=== PATIENT | male | born 1950 | race African-American/Black ===

== ENCOUNTER 2017-02-17 13:34 | Outpatient (CLI) | payer MEDICARE, BC ==
[2017-02-17] MEDS ORDERED: Gadobenate Dimeglumine 529 MG/1 ML (20ML VIAL) ONE (15:30)
--- NOTE | 2017-02-18 13:20 | MRI ---
MRI PELVIS WITH AND WITHOUT IV CONTRAST: Date: 02/17/17 HISTORY: 66-year-old male with Easton score of 9. FINDINGS: The prostatic volume measures 45 mL. There is a 1.0 cm focal area of hypointensity on ADC with hyperintensity on diffusion-weighted imag es and postcontrast enhancement seen in the posterior aspect of the right mid gland within the trans ition zone, highly suspicious for cancer. No definite capsular involvement is seen. No involvement of the neurovascular bundles is identified. There are changes of benign prostatic hypertrophy in the central gland. No suspicious lymph nodes a re seen. The seminal vesicles are normal.No suspicious osseous abnormalities are noted. There are jenkins bchondral cysts in the acetabular regions bilaterally. IMPRESSION: PI-RADS 4 - High (clinically significant cancer is likely to be present) This exam was interpreted in consultation with Dr. Rajat Bryant, who concurs. POS: BRETT
== END 2017-02-17 13:35 | disposition home or self-care (01) ==
LOC: TBSIIMAG 13:34
PROVIDERS: ATTEND Urology
DX: C61 Malignant neoplasm of prostate (principal)
CPT/HCPCS: 72197; A9579

== ENCOUNTER 2017-03-11 13:39 | Outpatient (CLI) | payer MEDICARE, BC ==
[2017-03-11 16:28] LABS: ALT (SGPT) 21 U/L (8-55); AST (SGOT) 27 U/L (5-34); Alkaline Phosphatase 103 U/L (40-150); Anion Gap 15 mmol/L (10-20); BUN (Urea Nitrogen) 19 mg/dL (8.4-25.7); Bilirubin, Total 0.3 mg/dL (0.2-1.2); Calc. Creatinine Clearance 0 mL/min (70-130); Calcium 9.7 mg/dL (7.8-10.44); Carbon Dioxide 19 mmol/L (23-31); Chloride 106 mmol/L (98-107); Estimated GFR-MDRD 88; Globulin 3.7 g/dL (2.4-3.5); Protein, Total 7.8 g/dL (5.8-8.1)
== END 2017-03-11 13:40 | disposition home or self-care (01) ==
LOC: LABBT 13:39
PROVIDERS: ATTEND Internal Medicine Cardiovascular Disease
DX: R94.39 Abnormal result of other cardiovascular function study (principal)
CPT/HCPCS: 80053

== ENCOUNTER 2017-03-17 05:45 | Day surgery (SDC) | payer MEDICARE, BC ==
[2017-03-11 14:15] VITALS: BMI 29.3
[2017-03-17] MEDS ORDERED: Heparin 1000 UNIT/NS 500ML(OR) 1,000 ML ONE (06:38)
[2017-03-17 06:59] LABS: #Basophils 0.1 thou/uL (0.0-0.2); #Eosinphils 0.3 thou/uL (0.0-0.7); #Lymphocytes 2.1 thou/uL (1.20-3.40); #Neutrophils 6.7 thou/uL (1.40-6.50); %Basophils 0.6 % (0.0-1.0); %Eosinophils 3.2 % (0.0-10.0); %Lymphocytes 20.7 % (21.0-51.0); %Monocytes 9.3 % (0.0-10.0); Hematocrit 40.6 % (42.0-52.0); Mean Platelet Volume 6.6 fL (7.4-10.4); Red Blood Cell (RBC) Count 4.65 mill/uL (4.70-6.10); White Blood Cell (WBC) Count 10.2 thou/uL (4.8-10.8)
[2017-03-17 07:05] LABS: Prothrombin Time 14.5 SEC (12.0-14.7)
[2017-03-17 07:06] LABS: PTT 29.5 SEC (22.9-36.1)
[2017-03-17 07:22] LABS: ALT (SGPT) 16 U/L (8-55); AST (SGOT) 15 U/L (5-34); Alkaline Phosphatase 97 U/L (40-150); Anion Gap 12 mmol/L (10-20); BUN (Urea Nitrogen) 14 mg/dL (8.4-25.7); Bilirubin, Total 0.4 mg/dL (0.2-1.2); Calc. Creatinine Clearance 113 mL/min (70-130); Calcium 9.4 mg/dL (7.8-10.44); Carbon Dioxide 23 mmol/L (23-31); Chloride 106 mmol/L (98-107); Cholesterol 142 mg/dl (< 200 Desired); Estimated GFR-MDRD Greater than 90; Globulin 3.2 g/dL (2.4-3.5); LDL Cholesterol, Calculated 92 mg/dL; Protein, Total 7.1 g/dL (5.8-8.1)
[2017-03-17] MEDS ORDERED: Verapamil 5 MG/2 ML VIAL ONE (07:32)
[2017-03-17] MEDS ORDERED: Heparin 10,000 UNITS/1 ML VIAL ONE (07:32)
[2017-03-17] MEDS ORDERED: Nitroglycerin 100MG/250ML BOT 250 ML ONE (07:32)
[2017-03-17] MEDS ORDERED: Fentanyl 100 MCG/2 ML VIAL ONE (07:41)
[2017-03-17] MEDS ORDERED: Midazolam HCl 2 mg/2 ml Vial ONE (07:41)
[2017-03-17] MEDS ORDERED: Iopamidol 370 76% 100 ML VIAL ONE (17:29)
--- NOTE | 2017-03-21 08:42 | EKG ---
Test Reason : PREOP Blood Pressure : / mmHG Vent. Rate : 081 BPM Atrial Rate : 081 BPM P-R Int : 192 ms QRS Dur : 078 ms QT Int : 342 ms P-R-T Axes : 049 -06 -02 degrees QTc Int : 397 ms Normal sinus rhythm Inferior infarct , age undetermined Abnormal ECG No previous ECGs available Confirmed by Erick BLISS ([id number]) on 03/21/2017 8:41:27 AM Referred By: MARJORIE Confirmed By:Erick BLISS
== END 2017-03-17 11:00 | disposition home or self-care (01) ==
LOC: CCL 05:45
PROVIDERS: ATTEND Internal Medicine Cardiovascular Disease
DX: I25.10 Atherosclerotic heart disease of native coronary artery without angina pectoris (principal); I10 Essential (primary) hypertension; E78.5 Hyperlipidemia, unspecified; E11.9 Type 2 diabetes mellitus without complications; Z79.84 Long term (current) use of oral hypoglycemic drugs; Z79.82 Long term (current) use of aspirin; Z79.899 Other long term (current) drug therapy
CPT/HCPCS: 80053; 80061; 85025; 85610; 85730; 93005; 93458; 93798; C1769; 36415; 93010; 99152; J1644; J2250; J3010

== ENCOUNTER 2017-04-22 10:00 | Inpatient (IN) | payer MEDICARE, BC ==
[2017-04-22 13:36] VITALS: BMI 29.3
[2017-05-06] MEDS ORDERED: CEFOXITIN SODIUM SLOW IVP SCH (06:30)
[2017-05-06] MEDS ORDERED: Fentanyl 100 MCG/2 ML VIAL ONE ×4 (06:30→14:31)
[2017-05-06] MEDS ORDERED: Midazolam HCl 2 mg/2 ml Vial ONE (06:30)
[2017-05-06] MEDS ORDERED: Dexamethasone 4 mg/ml Vial ONE (06:31)
[2017-05-06] MEDS ORDERED: Gentamicin 80 MG/2 ML VIAL ONE (06:41)
[2017-05-06] MEDS ORDERED: Sodium Chloride 0.9% 10 ML ONE (06:46)
[2017-05-06] MEDS ORDERED: Albumin 5% 0 ML ONE (07:15)
[2017-05-06] MEDS ORDERED: ceFOXitin 1 GM VIAL ONE ×2 (08:58→10:05)
[2017-05-06] MEDS ORDERED: HYDROmorphone 0.5 MG/0.5 ML SYRINGE ONE ×4 (11:31→15:39)
[2017-05-06] MEDS ORDERED: B & O ONE (12:54)
[2017-05-06] MEDS ORDERED: HYDROmorphone 2 MG/ML VIAL SLOW IVP PRN (13:35)
[2017-05-06] MEDS ORDERED: Promethazine HCl 25 MG/ML VIAL IM PRN (13:35)
[2017-05-06] MEDS ORDERED: Promethazine HCl 25 MG/ML VIAL SLOW IVP PRN (13:35)
[2017-05-06] MEDS ORDERED: Ondansetron HCl/PF 4 MG/2 ML Vial IVP PRN ×2 (13:35→16:26)
[2017-05-06] MEDS ORDERED: Bupivacaine PF 0.5% 30 ML VIAL ONE (14:22)
[2017-05-06] MEDS ORDERED: Bupivacaine HCl 0.5%/Epinephrine 1:200,000/PF 30 ml Vial ONE (14:22)
--- NOTE | 2017-05-06 14:29 | OP ---
DATE OF SURGERY: 05/06/2017 SERVICE: Urology. SURGEON: Chele Davalos M.D. PREOPERATIVE DIAGNOSIS: Prostate cancer. POSTOPERATIVE DIAGNOSIS: Prostate cancer. PROCEDURE PERFORMED: Robot-assisted laparoscopic prostatectomy with bilateral pelvic lymph node diss ection, non-nerve sparing. INDICATIONS FOR PROCEDURE: Mr. Broussard is a 66-year-old black male, who initially came to see me as a referral from Dr. Solis for high-risk prostate cancer. He had a PSA of 5 with biopsy demonstrati ng 4+5 prostate cancer, multiple cores. He already has fairly significant ED, which he is not treati ng. We discussed treatment options including surgery in a non-nerve sparing fashion, which he electe d to go for robotic approach. I told him that he likely would require radiation as well given his hi gh-risk disease; however, this would likely be based on his PSA and final pathology. The risks and b enefits of the surgery were discussed and he agreed to proceed forward. DESCRIPTION OF PROCEDURE: After identification of his armband and verification of consent, the patie blanca was brought back to the operating room where he underwent general anesthesia with endotracheal int ubation. He was then placed in steep Trendelenburg position and prepped and draped in the usual ster ile fashion. After appropriate time out, the procedure was begun with the Veress needle entry into t he umbilicus to insufflate the abdomen. The robotic ports were placed in the usual standard fashion with a 12-mm camera port at the umbilicus and the rest of the ports placed using camera assistance. There was a 15-mm port for the stapler on the right with an 11-mm public services assistant port and a 5-mm public services assistant port. On the left, there was an 8-mm port, and an 8-mm port for the #2 and 3 arms. The robot was t hen docked and the robotic portion of the procedure begun. Dissection was initially carried out in a posterior approach by making an incision on the peritoneal reflection near the rectovesical junction on the anterior surface. The vas deferens and seminal vesicles were identified and dissected free f rom the surrounding tissue with a combination of cautery and blunt dissection. No attempt was made f or nerve-sparing in this portion as this was chosen to be a non-nerve sparing procedure. [place] rs fascia was dissected free and dissected superiorly approximately midway to near the apex of the pr ostate. A Surgicel was then placed in this posterior space for hemostasis and attention was then tur anthony to the anterior abdominal wall. The space of the Retzius was dissected on either side by making an entry lateral to the medial umbilical ligaments on both sides and dissecting bluntly into the spac e of Retzius until the pubic arch could be seen. Once both sides were fully dissected, the dissectio n was carried out in a cephalad fashion towards the umbilicus. The urachal remnants were bipolared a nd then divided and an incision made to connect the 2 medial umbilical ligaments. Dissection was the n carried out anterior to the bladder into the loose areolar tissue to drop the bladder down and diss ection was carried forward until the pubic arch was exposed. The loose areolar tissue was dissected free of the pubic arch into the periprosthetic space. The superficial venous complex was bipolared a nd divided. Both periprosthetic spaces were dissected free of surrounding tissues until the endopelv ic fascia could be seen on both sides. The right side had an accessory pudendal artery, which appear ed to be going directly into the prostate. This was initially spared until the endopelvic fascias we re divided on both sides. At this point, we realized that the accessory pudendal artery would likely be at significant risk for injury during the placement of the stapler or during dissection of the ap ex of the prostate. Therefore, we elected to sacrifice the artery. Hem-o-Freddy clips were placed on b oth ends and the middle portion divided. The puboprostatic ligaments were divided on both sides with bipolar and then monopolar cautery. The vascular stapler was then used with the robot to divide the DVC to the urethra. The catheter was checked before stapler firing to ensure that the urethra was n ot involved in the stapler jaws, which it was not. At this point, the bladder neck dissection was be gun. Dissection was initially started on the left and right side of the prostate and carried down to wards the bladder neck. An attempt for a bladder neck-sparing surgery was performed; however, the di ssection ended up a little bit too cephalad and we came into the bladder, slightly high, but although still well enough in good region that there was no bladder neck reconstruction necessary, although t he bladder neck was a little bit larger than normal. Dissection was then carried out posteriorly unt il the previously dissected space where the seminal vesicles were was entered. The remaining tissue was then dissected free until the full connection had been made between the bladder neck dissection a nd the previously dissected SV space. The seminal vesicles were lifted up and the pedicles were thin anthony out on both sides. The vessel sealer was then brought in and used to divide the prosthetic pedic les on the left and right side, approximately two-thirds of the way up towards the apex. At this poi nt, we switched for back to monopolar and bipolar cautery and blunt dissection was used to divide the remaining apex to avoid rectal injury. Attention was then turned back to the anterior side where th e rest of the DVC was divided. The urethra was dissected free from surrounding tissues and the recto urethralis underneath. The urethra was dissected sharply near the apex of the prostate, sparing the external sphincter. Once the urethra was divided completely, the rectourethralis was divided sharply and which freed up the prostate, which was deposited into the right pericolic gutter. Subsequently, the rectal surface was inspected closely for rectal injuries and none were identified. Bleeding carlos eared to be adequately controlled; however, Surgicel was placed over the rectal surface due to some m ild slow oozing. During this time, we began the pelvic lymph node dissection, first on the right. T he borders of the lymph node dissection were the external iliac vein in the cephalad border, pubic ar ch for the caudal border, circumflex femoral vein anteriorly, and obturator nerve posteriorly. All i ntervening fatty tissue and lymph tissue were removed using bipolar to seal the lymphatics. The same was repeated on the left. Both pelvic lymph nodes were sent for routine pathologic evaluation. At this point, the instruments were exchanged for the needle drivers and a Adam stitch was placed with a 2-0 Vicryl on an SH needle through the rectourethralis and through the base of the bladder. This w as used to approximate the base of the bladder with the urethra. The anastomosis was then performed using a 2-0 V-Loc suture in a circumferential fashion. Care was taken to try and parachute the large r bladder neck to match up nicely with the urethra. Upon completion, the catheter passed into the bl adder easily and was leak tested. No leak was identified. A 15 mL of sterile water were placed into the balloon and the V-Loc suture tied down. The specimen was then deposited into an Endopouch bag a nd FloSeal was applied at the apex of the prostate where some minor bleeding had been encountered. T he rest of the spaces were controlled with Stefania. A #19 GEMMA drain was placed into the #3 arm and elena nicolas posterior to the bladder. This was secured with a 2-0 nylon. The Endopouch string was then dozier sferred to the umbilical port where the camera was and a Murphy-Gerry used to close the 15-mm port and the 11-mm port on the right side. The insufflation was then taken down and the robot undocked a nd all ports were removed. The specimen was extracted through the umbilical port by extending the in cision slightly laterally on both sides and dissecting down through the fascia. The prostate was rem harini intact in the Endopouch bag and submitted for routine pathologic evaluation. The intervening fa scias were then closed with a 0 Vicryl on the UR-6 needle in an interrupted zelien-mw-zguhl fashion. Given the patient's belly size, we did close some of the space in between the fascia and the sk in to help avoid seroma formation. The skin was then closed with a 4-0 Monocryl in a subcuticular fa shion at all port sites and Dermabond applied. The patient was then awakened and taken to PACU for r ecovery in stable condition. Of note, a B and O suppository was placed by the surgeon with no blood on the gloved finger indicating that there was a very low risk for rectal injury. COMPLICATIONS: None. ESTIMATED BLOOD LOSS: 75 mL. RETAINED TUBES AND DRAINS: A #19 GEMMA drain and an 18-Persian catheter with 15 mL of sterile water in t he balloon. SPECIMENS: Prostate, bilateral seminal vesicles, and bilateral pelvic lymph nodes. DISPOSITION: Patient will be admitted to the hospital for postoperative recovery. Once he is adequa tely recovered, he can be discharged home and his care will be handled on an outpatient basis.
[2017-05-06 14:30] LABS: #Lymphocytes 1.1 thou/uL (1.20-3.40); #Monocytes 0.2 thou/uL (0.11-0.59); #Neutrophils 15.9 thou/uL (1.40-6.50); %Basophils 0.1 % (0.0-1.0); %Eosinophils 0.1 % (0.0-10.0); %Lymphocytes 6.3 % (21.0-51.0); %Monocytes 1.2 % (0.0-10.0); %Neutrophils 92.3 % (42.0-75.0); Hemoglobin 12.7 g/dL (14.0-18.0); Mean Corpuscular Hemoglobin 28.7 pg (27.0-31.0); Mean Corpuscular Volume 87.1 fl (80.0-94.0); Mean Platelet Volume 6.4 fL (7.4-10.4); Platelet Count 281 thou/uL (130-400); RBC Distribution Width 11.9 % (11.5-14.5); Red Blood Cell (RBC) Count 4.43 mill/uL (4.70-6.10); White Blood Cell (WBC) Count 17.3 thou/uL (4.8-10.8)
[2017-05-06] MEDS ORDERED: Lidocaine 1% PF 5 ML VIAL ONE ×2 (14:33)
[2017-05-06] MEDS ORDERED: Vecuronium 10 MG VIAL ONE (14:33)
[2017-05-06] MEDS ORDERED: PROPOFOL 200 MG/20 ML VIAL ONE (14:33)
[2017-05-06] MEDS ORDERED: Glycopyrrolate 0.2 MG/ML 5 ML SYRINGE ONE (14:33)
[2017-05-06] MEDS ORDERED: Ondansetron HCl/PF 4 MG/2 ML Vial ONE (14:33)
[2017-05-06] MEDS ORDERED: Ketorolac Tromethamine 30 MG/ML VIAL ONE (14:33)
[2017-05-06] MEDS ORDERED: Dexamethasone 20 MG/5 ML VIAL ONE (14:33)
[2017-05-06 14:47] LABS: Anion Gap 12 mmol/L (10-20); BUN (Urea Nitrogen) 20 mg/dL (8.4-25.7); Calc. Creatinine Clearance 88 mL/min (70-130); Calcium 9.1 mg/dL (7.8-10.44); Carbon Dioxide 20 mmol/L (23-31); Chloride 105 mmol/L (98-107); Estimated GFR-MDRD 69; Glucose 206 mg/dL (80-115); Potassium 4.4 mmol/L (3.5-5.1); Sodium 133 mmol/L (136-145)
[2017-05-06] MEDS ORDERED: HumaLOG 300 UNITS/3 ML VIAL SC PRN (16:26)
[2017-05-06] MEDS ORDERED: Dextrose 5% in Water 1,000 ML IV PRN (16:26)
[2017-05-06] MEDS ORDERED: Mag-Al 1200 mg/1200 mg/30 ML UDCUP PO PRN (16:26)
[2017-05-06] MEDS ORDERED: Oxybutynin 5 MG TAB PO PRN (16:26)
[2017-05-06] MEDS ORDERED: Hyoscyamine Sulfate SL 0.125 mg Tablet SL PRN (16:26)
[2017-05-06] MEDS ORDERED: oxyCODONE 5 MG TAB PO PRN (16:26)
[2017-05-06] MEDS ORDERED: Dextrose 50% Abboject 50 ML SYRINGE SLOW IVP PRN (16:26)
[2017-05-06] MEDS ORDERED: Fentanyl 100 MCG/2 ML VIAL SLOW IVP PRN (16:26)
[2017-05-06] MEDS ORDERED: diphenhydrAMINE 25 MG CAP PO PRN (16:26)
[2017-05-06] MEDS: Ketorolac Tromethamine 30 MG/ML VIAL IVP SCH ×2 (18:21→23:04)
[2017-05-06] MEDS: Acetaminophen 500 MG TAB PO SCH ×2 (18:21→21:51)
[2017-05-06] MEDS: Sodium Chloride 0.9% 1,000 ML IV SCH (18:39)
[2017-05-06] MEDS: cefOXitin 1.5 GM, Admixture Fee 1 EACH in Sterile Water 8.33 ML SLOW IVP SCH (19:21)
[2017-05-06] MEDS: Docusate 100 MG CAP PO SCH (21:00)
[2017-05-06] MEDS: oxyCODONE 5 MG TAB PO PRN (21:00)
[2017-05-06] MEDS: Bacitracin Zinc 1 Packet TOP SCH (21:00)
[2017-05-06] MEDS ORDERED: cefOXitin 1.5 GM in Sodium Chloride 0.9% 100 ML IVPB SCH (22:00)
[2017-05-07] MEDS: oxyCODONE 5 MG TAB PO PRN ×3 (01:10→17:04)
[2017-05-07] MEDS: cefOXitin 1.5 GM, Admixture Fee 1 EACH in Sterile Water 8.33 ML SLOW IVP SCH ×2 (01:11→09:50)
[2017-05-07 04:27] LABS: #Lymphocytes 1.7 thou/uL (1.20-3.40); #Monocytes 1.1 thou/uL (0.11-0.59); #Neutrophils 9.6 thou/uL (1.40-6.50); %Basophils 0.2 % (0.0-1.0); %Eosinophils 0.1 % (0.0-10.0); %Lymphocytes 13.3 % (21.0-51.0); %Neutrophils 77.4 % (42.0-75.0); Mean Corpuscular Hemoglobin 28.7 pg (27.0-31.0); Mean Corpuscular Volume 87.1 fl (80.0-94.0); Mean Platelet Volume 6.7 fL (7.4-10.4); Platelet Count 241 thou/uL (130-400); RBC Distribution Width 11.9 % (11.5-14.5); Red Blood Cell (RBC) Count 4.17 mill/uL (4.70-6.10); White Blood Cell (WBC) Count 12.3 thou/uL (4.8-10.8)
[2017-05-07 04:32] LABS: Anion Gap 7 mmol/L (10-20); BUN (Urea Nitrogen) 21 mg/dL (8.4-25.7); Calc. Creatinine Clearance 90 mL/min (70-130); Carbon Dioxide 28 mmol/L (23-31); Chloride 106 mmol/L (98-107); Estimated GFR-MDRD 71; Glucose 107 mg/dL (80-115); Potassium 4.6 mmol/L (3.5-5.1); Sodium 136 mmol/L (136-145)
[2017-05-07] MEDS: Acetaminophen 500 MG TAB PO SCH ×4 (05:14→23:13)
[2017-05-07] MEDS: Ketorolac Tromethamine 30 MG/ML VIAL IVP SCH ×2 (05:14→12:38)
[2017-05-07] MEDS: Sodium Chloride 0.9% 1,000 ML IV SCH (05:22)
[2017-05-07] MEDS ORDERED: traMADol HCl 50 MG TAB PO SCH (06:01)
[2017-05-07] MEDS ORDERED: Gentamicin Sulfate 80 MG in Premix Bag 1 BAG IVPB SCH (06:30)
[2017-05-07] MEDS: Amlodipine 10 MG TAB PO SCH (08:32)
[2017-05-07] MEDS: Lisinopril 20 MG TAB PO SCH (08:32)
[2017-05-07] MEDS: Bacitracin Zinc 1 Packet TOP SCH ×2 (08:33→21:27)
[2017-05-07] MEDS: metFORMIN 500 MG TAB PO SCH (08:33)
[2017-05-07] MEDS: Atorvastatin Calcium 20 MG TAB PO SCH (08:33)
[2017-05-07] MEDS: Docusate 100 MG CAP PO SCH ×2 (08:33→21:26)
--- NOTE | 2017-05-07 15:13 | PRG ---
DATE OF SERVICE: 05/07/2017 SUBJECTIVE: The patient states he is doing okay. His pain is still 5/10 and is not completely well controlled at this point. He is requesting to stay an additional day in the hospital to ensure that his pain control will be adequate. He is tolerating a regular diet, has been up out of bed and feels comfortable taking care of his catheter. Otherwise, he has not passed any gas yet. PHYSICAL EXAMINATION: VITAL SIGNS: Temperature 98, pulse 69, blood pressure 110/61, saturations 92% on room air, respirati ons 16. In's and out's, the patient has 120 mL output from the GEMMA drain and 1600 from the Pete. He has taken in 450 mL orally with 1000 mL of IV fluids. GENERAL: No apparent distress, communicative and alert. CARDIOVASCULAR: Regular rate and rhythm. CHEST: Clear anteriorly. ABDOMEN: Soft, nontender, nondistended, positive bowel sounds. Incisions clean, dry, and intact. J P serosanguineous. GENITOURINARY: Pete catheter in place, secured with clear yellow urine. EXTREMITIES: No clubbing, cyanosis or edema. SCDs in place. LABORATORY DATA: The full set of labs in the [facility] system, which I have reviewed. Of note, the p atient's hemoglobin is 12 with a white count of 12.3, creatinine is 1.23 with a sodium of 136. ASSESSMENT AND PLAN: A 66-year-old black male with high risk prostate cancer status post robotic ass isted prostatectomy postop day #1. His pain control could probably be a little bit better. Therefor e, we will continue to monitor him for 24 hours to ensure that his pain control be adequate with oral medications alone. If this is the case, then he should be able to be discharged tomorrow with p.o. pain control. He should continue to ambulate, use incentive spirometer and should be able tolerate A DA diet. I will sign out to the acute care occupational therapist urologist to check on him tomorrow morning and ensure as amanda g as his labs are okay and he is feeling fine with adequate pain control, he can be discharged home. His follow up has already been arranged and his prescriptions have been written, although additional pain medications can be written if needed.
[2017-05-07] MEDS: traMADol HCl 50 MG TAB PO SCH (21:26)
[2017-05-08] MEDS: Acetaminophen 500 MG TAB PO SCH ×2 (04:35→09:31)
[2017-05-08] MEDS: oxyCODONE 5 MG TAB PO PRN (04:35)
[2017-05-08] MEDS: metFORMIN 500 MG TAB PO SCH (09:28)
[2017-05-08] MEDS: Atorvastatin Calcium 20 MG TAB PO SCH (09:28)
[2017-05-08] MEDS: Amlodipine 10 MG TAB PO SCH (09:28)
[2017-05-08] MEDS: Bacitracin Zinc 1 Packet TOP SCH (09:28)
[2017-05-08] MEDS: traMADol HCl 50 MG TAB PO SCH (09:29)
[2017-05-08] MEDS: Docusate 100 MG CAP PO SCH (09:29)
[2017-05-08] MEDS: Lisinopril 20 MG TAB PO SCH (09:29)
[2017-05-08 09:31] VITALS: BP 107/65
[2017-05-08 11:56] VITALS: TEMP 98
--- NOTE | 2017-05-11 13:13 | DIS ---
DATE OF ADMISSION: 05/06/2017 DATE OF DISCHARGE: 05/08/2017 ADMITTING PHYSICIAN: Chele Davalos M.D. DISCHARGING PHYSICIAN: Karan Solis M.D. ADMITTING DIAGNOSIS: Prostate cancer. DISCHARGE DIAGNOSIS: Prostate cancer. PROCEDURE PERFORMED WHILE INPATIENT: Robot-assisted laparoscopic prostatectomy with bilateral pelvic lymph node dissection. BRIEF HISTORY: Mr. Broussard is a 66-year-old black male with high risk prostate cancer, who is comin g in today for prostatectomy. He had had all this options discussed previously and had elected to go with a surgical option with possibility of radiation afterwards. Further full history and physical, please see the scanned H&P portion. HOSPITAL COURSE: After surgery (please see operative note for details) patient was admitted to the ospital for postoperative recovery. He did quite well on postop day #1 with minimal output from his GEMMA drain. He was able to get out of bed and be advanced to a regular diet. He had not passed any ga s and stated that he felt somewhat uneasy about going home due to his pain control not being complete ly adequate. He was able to keep his pain controlled with oral medications, but stated that he felt that the pain medicine was somewhat suboptimal and wanted to stay one extra day. His GEMMA drain was re moved as a potential source for increased pain, which he stated he felt much better afterwards. By p ostoperative day 2, he apparently had felt much better, had had leg bag teaching and was able to get up and move around and had much less pain. He felt comfortable with discharge and was discharged dayne e with a Pete catheter to leg bag and gravity bag. DISPOSITION: Discharge to home. DISCHARGE CONDITION: Good. DME is Pete catheter with leg bag and gravity bag. DISCHARGE INSTRUCTIONS: Include no heavy lifting, no strenuous activity, no driving with the cathete r in. No submerging underwater, he may shower, he should notify me for a fever over 101, significant swelling in the legs, chest pain, shortness of breath, significant hematuria, problems with his cath eter or any other concerning signs or symptoms that he may have. He is not to manipulate or allow an yone else to manipulate the catheter without my permission. DISCHARGE MEDICATIONS: Include tramadol and [place] for 30 days that is tramadol 100 mg p.o. q.6 hours p.r.n. and [place] 5/325 mg 1-2 tabs p.o. q.4 hours p.r.n. pain, Colace 100 mg p.o. b.i.d., oxybutynin 5 mg p.o. t.i.d. p.r.n. urgency, and levofloxacin 500 mg p.o. x1 on the day of his followup appointm ent. Follow up will be in 2 weeks for catheter removal.
== END 2017-05-08 13:25 | disposition home or self-care (01) | DRG 708 ==
LOC: SURG A 05-06 05:49 → SURG B 05-06 16:20
PROVIDERS: ADMIT Urology; ATTEND Urology
PROC: 0VT04ZZ Resection of Prostate, Percutaneous Endoscopic Approach (ICD-10-PCS; principal; 2017-05-06)
PROC: 0VT34ZZ Resection of Bilateral Seminal Vesicles, Percutaneous Endoscopic Approach (ICD-10-PCS; 2017-05-06)
PROC: 07BC4ZX Excision of Pelvis Lymphatic, Percutaneous Endoscopic Approach, Diagnostic (ICD-10-PCS; 2017-05-06)
PROC: 8E0W4CZ Robotic Assisted Procedure of Trunk Region, Percutaneous Endoscopic Approach (ICD-10-PCS; 2017-05-06)
PROC: 0VBQ4ZZ Excision of Bilateral Vas Deferens, Percutaneous Endoscopic Approach (ICD-10-PCS; 2017-05-06)
PROC: 0T9B70Z Drainage of Bladder with Drainage Device, Via Natural or Artificial Opening (ICD-10-PCS; 2017-05-06)
PROC: 3E0T3BZ Introduction of Anesthetic Agent into Peripheral Nerves and Plexi, Percutaneous Approach (ICD-10-PCS; 2017-05-06)
DX: C61 Malignant neoplasm of prostate (principal); E11.9 Type 2 diabetes mellitus without complications; I10 Essential (primary) hypertension; E78.5 Hyperlipidemia, unspecified
CPT/HCPCS: 36415; 36416; 80048; 85025; 86850; 86900; 86901; 88304; 88305; 88309; A4216; J0670; J0694; J1100; J1170; J1580; J1642; J1885; J2001; J2250; J2405; J2704; J3010; P9045; S0020

== ENCOUNTER 2017-04-22 13:18 | Outpatient (CLI) | payer MEDICARE, BC ==
[2017-04-22 14:30] LABS: Mean Platelet Volume 6.7 fL (7.4-10.4); Red Blood Cell (RBC) Count 4.97 mill/uL (4.70-6.10); White Blood Cell (WBC) Count 8.2 thou/uL (4.8-10.8)
[2017-04-22 14:35] LABS: Bilirubin Negative (Negative); Blood, Urine Moderate (Negative); Glucose, Urine (Dipstick) Negative (Negative); Ketone, Urine Negative (Negative); Nitrite Positive (Negative); Protein, Urine (Dipstick) Negative (Neg-Trace)
[2017-04-22 14:37] LABS: Bacteria/HPF 4+ HPF (None Seen); Hyaline Casts/LPF 0-3 HYALINE CAST LPF (0-3 Hyaline); Squamous Epithelial None Seen HPF (0-3)
[2017-04-22 14:52] LABS: ALT (SGPT) 26 U/L (8-55); AST (SGOT) 20 U/L (5-34); Alkaline Phosphatase 93 U/L (40-150); Anion Gap 14 mmol/L (10-20); BUN (Urea Nitrogen) 15 mg/dL (8.4-25.7); Bilirubin, Total 0.4 mg/dL (0.2-1.2); Calc. Creatinine Clearance 0 mL/min (70-130); Calcium 10.3 mg/dL (7.8-10.44); Carbon Dioxide 25 mmol/L (23-31); Chloride 103 mmol/L (98-107); Estimated GFR-MDRD Greater than 90; Globulin 2.9 g/dL (2.4-3.5); Protein, Total 7.4 g/dL (5.8-8.1)
[2017-04-22 15:05] LABS: PTT 28.5 SEC (22.9-36.1); Prothrombin Time 14.4 SEC (12.0-14.7)
== END 2017-04-22 13:19 | disposition home or self-care (01) ==
LOC: LABBT 13:18
PROVIDERS: ATTEND Urology
DX: Z01.812 Encounter for preprocedural laboratory examination (principal); C61 Malignant neoplasm of prostate
CPT/HCPCS: 80053; 81001; 85027; 85610; 85730; 87077; 87086; 87186